=== PATIENT | female | born 1985 | race African-American/Black ===

== ENCOUNTER 2018-08-26 14:16 | Inpatient (IN) | payer OTHER ==
[2018-08-26 14:34] VITALS: BMI 45.4
[2018-08-26] MEDS ORDERED: ACETAMINOPHEN 325 MG TABLET (FP) PO ONE (14:34)
--- NOTE | 2018-08-26 14:34 | PDOC ---
Rapid Medical Evaluation Time Seen by Provider: 08/26/18 14:31 Medical Evaluation: Allergies Allergy/AdvReac Type Severity Reaction Status Date / Time strawberry Allergy Verified 08/26/18 14:31 tomato Allergy Verified 08/26/18 14:31 08/26/18 14:31 Pt presents to the ED for a miscarriage/vaginal bleeding. Pt states she started bleeding earlier this morning and notes that she passed large clots. She has them with her in the ED. LMP 07/29/18 Exam: NAD, ambulatory Orders: Labs, transvaginal US, urine Pt to proceed to the ED for further evaluation Discharge Disposition - Diagnosis Vaginal bleeding - Referrals - Patient Instructions - Post Discharge Activity
[2018-08-26 15:02] LABS: EOS % 8.1 % (0-4.5); HEMATOCRIT 23.2 % (32.4-45.2); HEMOGLOBIN 7.1 GM/dL (10.7-15.3); LYMPH % 30.3 % (8-40); MCHC 30.6 g/dl (32.0-36.0); MEAN CELL VOLUME 62.3 fl (80-96); MEAN PLT VOLUME 6.6 fl (7.5-11.1); MONO % 5.9 % (3.8-10.2); NEUT % 54.7 % (42.8-82.8); PLATELET COUNT 377 K/MM3 (134-434); RBC 3.73 M/mm3 (3.60-5.2); RDW 20.1 % (11.6-15.6); WHITE BLOOD COUNT 6.3 K/mm3 (4.0-10.0)
[2018-08-26 15:03] LABS: MCH 19.1 pg (25.7-33.7)
[2018-08-26] MEDS ORDERED: SODIUM CHLORIDE 0.9% 500 ML INFUS.BAG IV ONE ×2 (15:28→16:25)
[2018-08-26 16:00] LABS: ANISOCYTOSIS 2+; MACROCYTOSIS 0; PLATELET ESTIMATE NORMAL
--- NOTE | 2018-08-26 16:03 | PDOC ---
History of Present Illness - General Chief Complaint: Vaginal Bleeding Stated Complaint: BLEEDING,6WKS Time Seen by Provider: 08/26/18 14:31 History Source: Patient Exam Limitations: No Limitations - History of Present Illness Initial Comments: 33 yo F w a pmh of Asthma and chronic anemia presents to the ER with vaginal bleeding and lower abdominal pain. She requests to be evaluated to see if she is having a miscarriage. She has noticed that she is passing large clots out of her vagina, and she has brought them with her to the ED to be analyzed. She states that her bleeding and pain all began this morning. She admits that as the day has progressed she has started to feel weaker and more faint. Here in the ED she feels lightheaded. She states her LMP was 07/29/18. She denies fevers, chills, infections, headache, blurry vision, nausea, vomiting , back pain, chest pain, SOB, difficulty breathing, numbness, weakness, tingling , or vertigo. PCP: Olinda Zavala PSH: , D&C Social Hx: Denies smoking, drinking, or other substance usage. Allergies: [place] and tomatoes. Past History - Past Medical History Allergies/Adverse Reactions: Allergies Allergy/AdvReac Type Severity Reaction Status Date / Time strawberry Allergy Verified 08/26/18 14:31 tomato Allergy Verified 08/26/18 14:31 Anemia: Yes Asthma: Yes (INTUBATED X2) COPD: No - Suicide/Smoking/Psychosocial Hx Smoking History: Never smoked Review of Systems - Review of Systems Able to Perform ROS?: Yes Comments:: CONSTITUTIONAL: Present: fatigue Absent: fever, no chills EYES: Absent: visual changes ENT: Absent: ear pain, no sore throat CARDIOVASCULAR: Absent: chest pain, no palpitations RESPIRATORY: Absent: cough, no SOB GI: Present: Abdominal pain Absent: no nausea, no vomiting, no constipation, no diarrhea GENITOURINARY: Absent: dysuria, no frequency, no hematuria MUSKULOSKELETAL: Absent: back pain, no arthralgia, no myalgia SKIN: Absent: rash NEURO: Absent: headache *Physical Exam - Vital Signs Last Vital Signs Temp Pulse Resp BP Pulse Ox 98.1 F 86 19 99/52 L 99 08/26/18 14:31 08/26/18 14:31 08/26/18 14:31 08/26/18 14:31 08/26/18 14:31 - Physical Exam Comments: Hypotensive BP GENERAL: Well-appearing, well-nourished. No apparent distress. HEENT: Normocephalic, atraumatic. PERRL, EOM intact. CARDIOVASCULAR: Normal S1, S2. Regular rate and rhythm. PULMONARY: No evidence of respiratory distress. Lungs clear to auscultation bilaterally. No wheezing, rales or rhonchi. ABDOMEN: Mild suprapubic TTP. Soft, non-distended. EXTREMITIES: Normal ROM in all four extremities. No gross deformities. SKIN: Warm, dry. No rash NEUROLOGICAL: No focal neurological deficits. Female Pelvic Exam: positive: normal adnexa, normal size ovaries, discharge ( Large clots), vaginal bleeding, other (Active passage of large clots, Cervix is open. ). negative: normal external exam (Blood clots on outside. ), cervical os closed (Open), CMT, lesions, Bartholin mass, adnexal tenderness Moderate Sedation - Procedure Monitoring Vital Signs: Procedure Monitoring Vital Signs Temperature 98.1 F 08/26/18 14:31 Pulse Rate 86 08/26/18 14:31 Respiratory Rate 19 08/26/18 14:31 Blood Pressure 99/52 L 08/26/18 14:31 O2 Sat by Pulse Oximetry (%) 99 08/26/18 14:31 ED Treatment Course - LABORATORY CBC & Chemistry Diagram: 08/26/18 14:48 - ADDITIONAL ORDERS Additional order review: Laboratory Results 08/26/18 08/26/18 14:48 14:48 Beta HCG, Quant 97938.8 Blood Type A POSITIVE Antibody Screen Negative 08/26/18 14:48 RBC 3.73 MCV 62.3 L MCHC 30.6 L RDW 20.1 H MPV 6.6 L Neutrophils % 54.7 Lymphocytes % 30.3 Monocytes % 5.9 Eosinophils % 8.1 H Basophils % 1.0 - Medications Given in the ED: ED Medications Discontinued Medications Generic Name Dose Route Start Last Admin Trade Name Freq PRN Reason Stop Dose Admin Acetaminophen 650 mg 08/26/18 14:34 08/26/18 14:35 Tylenol - PO 08/26/18 14:35 650 mg ONCE ONE Administration Sodium Chloride 1,000 ml 08/26/18 15:28 08/26/18 15:45 Normal Saline - IV 08/26/18 15:29 1,000 ml ONCE ONE Administration Medical Decision Making - Medical Decision Making 33 yo F presents to the ER with vaginal bleeding and lightheadedness. - VS: Hypotensive - Pelvic: Active passage of clots, cervical os open. 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 US unremarkable and shows no evidence of ectopic . This patient likely experienced a near complete miscarriage. Dr. Pak consulted and knows about patient. She requests to have patient placed in room 5 and she will come evaluate her. Dr. Champion is here in the ED evaluating the patient. She states she will take the patient to the OR to perform a D&C. - Will admit patient to OB *DC/Admit/Observation/Transfer Diagnosis at time of Disposition: Vaginal bleeding, Retained products of conception - Discharge Dispostion Condition at time of disposition: Guarded Decision to Admit order: Yes - Referrals - Patient Instructions - Post Discharge Activity
--- NOTE | 2018-08-26 16:19 | PDOC ---
Attending Attestation - Resident Resident Name: Oscar Chu - ED Attending Attestation I have performed the following: I have examined & evaluated the patient, The case was reviewed & discussed with the resident, I agree w/resident's findings & plan, Exceptions are as noted - HPI HPI: 08/26/18 17:24 33y F A1 at approx 5 weeks gesatation presents with lower abdmoinal pain and vaginal bleeding since this morning. The pt was fine utnil this morning, woke up with abd cramping and vag bleeding psasing clots. denies any fever/ chills, cp. endorses feleing alittle lightheaded earlier today. Pt notes she had similar episode in March, baseline hbg was 8.5, and had repeat hbg was 7.1 and required a D&C. on exam pt appears uncomfortable mild suprapublic tenderness pelvic exam noted for many clots hbg at 7.1 here pelvic US noted for possible retained products no iup noted pt given transusion due to hypotension will dw special tester regarding need for d/c and further management - Medical Decision Making 08/26/18 18:[address] andrade - agree with taking pt to the OR for DC
[2018-08-26] MEDS ORDERED: ACETAMINOPHEN 1000 MG/100 ML VIAL (NON FORMULARY) IVPB ONE (17:06)
[2018-08-26] MEDS ORDERED: morphine CARPU-JECT 4 MG/1 ML DISP.SYRIN IVPUSH ONE (17:52)
[2018-08-26] MEDS ORDERED: MORPHINE SULFATE 2 MG/ML VIAL ONE (17:53)
--- NOTE | 2018-08-26 18:23 | HP ---
Past Medical History - Primary Care Physician PCP:: Cinthya Pak - Admission Chief Complaint: c/o 4 weeks gestation with heavy vaginal bleeeding & cramps since today AM at 11.00 AM . pt states she did not know she was . 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 she presented in ER Work up Hcg 15,652.8 miu, , sono Em 2.3 cm , heterogenous echogenic material seen , Retained products suspected History of Present Illness: pt had last sp ab on 06/05/18 D&C was done at [facility] pt states she had period after that twice regular . She is sexually active , not using contraception. 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 Weeks Gestation by Dates: 4 Heme/Onc: Yes: Anemia (not taking Iron pills) Infectious Disease: Yes: Other (declines STD) Endocrine: Yes: Other (denies any endo problems) - Past Surgical History Past Surgical History: Yes: (2010) Hx Myomectomy: No Hx Transabdominal Cerclage: No Additional Surgical History: D &C 05/2018 - Smoking History Smoking history: Never smoked - Alcohol/Substance Use Hx Alcohol Use: No History of Substance Use: reports: None - Social History History of Recent Travel: No Home Medications - Allergies Allergies/Adverse Reactions: Allergies Allergy/AdvReac Type Severity Reaction Status Date / Time strawberry Allergy Verified 08/26/18 14:31 tomato Allergy Verified 08/26/18 14:31 Physical Exam - Maternity Vital Signs: Vital Signs Temperature 97.5 F L 08/26/18 17:46 Pulse Rate 81 08/26/18 17:46 Respiratory Rate 19 08/26/18 14:31 Blood Pressure 121/72 08/26/18 17:46 O2 Sat by Pulse Oximetry (%) 98 08/26/18 17:46 Constitutional: Yes: Anxious, Obese, Pallor Eyes: Yes: WNL HENT: Yes: WNL, Normocephalic Neck: Yes: WNL Cardiovascular: Yes: WNL, Regular Rate and Rhythm Lungs: Clear to auscultation Breast(s): Yes: WNL. 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 No: Calf Tenderness Edema: No Integumentary: Yes: Incision (pfannensteil scar), Tattoos Deep Tendon Reflex Grade: Normal +2 ...Motor Strength: WNL Psychiatric: Yes: WNL - Labs Lab Results: CBC, BMP 08/26/18 14:48 Laboratory Tests 08/26/18 08/26/18 08/26/18 14:48 14:48 14:48 WBC 6.3 Hgb 7.1 L Hct 23.2 L Plt Count 377 Beta HCG, Quant 60005.8 Blood Type Antibody Screen Negative 08/26/18 16:17 WBC Hgb Hct Plt Count Beta HCG, Quant Blood Type A POSITIVE Antibody Screen Problem List - Problems (1) Incomplete with delayed or excessive hemorrhage Code(s): O03.1 - DELAYED OR EXCESSIVE HEMOR FOLLOWING INCMPL SPON (2) Anemia Code(s): D64.9 - ANEMIA, UNSPECIFIED Qualifiers: Anemia type: iron deficiency Iron deficiency anemia type: inadequate dietary iron intake Qualified Code(s): D50.8 - Other iron deficiency anemias Assessment/Plan 33 yrs , s/p primary c/s(2010) & sp ab ( 06/05/18) , is bleeding heavy incomplete ab is diagnozed Plan pt receiving pack cell transfusion in ER . suction D & C
[2018-08-26] MEDS ORDERED: MIDAZOLAM HCL 2 MG/2 ML SINGLE DOSE VIAL ONE ×3 (20:00→20:21)
[2018-08-26] MEDS ORDERED: LIDOCAINE HCL 1%, 10 MG/ML (20ML VIAL) ONE (20:02)
[2018-08-26] MEDS ORDERED: OXYTOCIN 10 UNITS/ML VIAL ONE ×2 (20:06)
[2018-08-26] MEDS ORDERED: ceFAZolin SODIUM 1 GM VIAL IVPB ONE (20:21)
[2018-08-26] MEDS ORDERED: IBUPROFEN 400 MG TABLET (FP) PO PRN (20:42)
[2018-08-26] MEDS ORDERED: oxyCODONE HCL 5 MG TABLET PO PRN (20:44)
[2018-08-26] MEDS ORDERED: ONDANSETRON 4 MG/2 ML VIAL IVPUSH PRN (20:44)
[2018-08-26] MEDS ORDERED: PROMETHAZINE HCL 25 MG/1 ML VIAL IVPUSH PRN (20:44)
--- NOTE | 2018-08-26 20:54 | OP ---
Operative Note - Note: Operative Date: 08/26/18 Pre-Operative Diagnosis: sp incomplete ab with hemorrhage & anemia Operation: suction evacuation curettage Findings: ut 10 week size ' os ope n blood clots at os removed #9 canula used for suction evacuation adnexa RHIT 2 gm iv Ancef given intraop IV pitocin infusion started Surgeon: Cinthya Pak Anesthesiologist/COVER MARKER: Mark Anthony Cash Anesthesia: Spinal Specimens Removed: uterine contents Estimated Blood Loss (mls): 30 Drains, Volume Out (mls): 100 (bladder catheterized & emptied prior to procedure ) Blood Volume Replaced (mls): 1 (one unit will be given post op ) Operative Report Dictated: Yes
--- NOTE | 2018-08-26 22:14 | OP ---
DATE OF OPERATION: 08/26/2018 OPERATION DONE: Suction evacuation and curettage. PREOPERATIVE DIAGNOSES: Spontaneous, incomplete with hemorrhage and anemia. POSTOPERATIVE DIAGNOSES: Spontaneous, incomplete with hemorrhage and anemia. SURGEON: Cinthya Pak MD ANESTHESIOLOGIST: Mark Anthony Cash MD ANESTHESIA: Spinal. FINDINGS: This is a 33-year-old 3 para 1-0-1-1, LMP July 29, and hCG is 15,650. Sonograms shows no gestational sac; irregular, heterogenous, echogenic contents in the uterine cavity; possible retained products of conception; and endometrium 2.3 cm. Patient was bleeding heavy with blood clots and blood transfusion was started in the emergency room by the ER physician. PROCEDURE: Patient was taken to the operating room table and spinal anesthesia was given. Patient was placed in the lithotomy position. Abdomen, pubis, perineum were painted with Betadine; draped in usual manner. Pelvic examination was done. Uterus was anteverted, 10-week size. Cervix was posterior, os was open, and the contents (blood clots) were felt at the cervical os. Then, bladder was catheterized emptied; 100 mL of the urine was removed. Then, the anterior lip of the cervix was held with a single-toothed tenaculum and the blood clots at the os were removed. Then, a No. 9 suction cannula was introduced into the uterine cavity and the contents were aspirated out until no more contents were obtained and then the cannula was removed. Curettage was done. Gritty sensation was felt all over the endometrial cavity. Then, the suction cannula was reintroduced and suction was done. No more tissue or blood clots were obtained. Suction was completed. Uterine cavity was clean and then tenaculum was removed. Hemostasis was verified. Estimated blood loss in the OR was 30 mL. Patient was bleeding profusely in the emergency room. Her hemoglobin was 7 g and patient is obese with a BMI of 45.5. She has history of bronchial asthma also. Patient tolerated the procedure well. She was given 2 g of IV Ancef prior to the procedure and Pitocin during the procedure and she was given a 2nd unit of the blood transfusion in the recovery room. Hilda HOOVER/[id number]
[2018-08-26 23:14] VITALS: BP 122/69; PULSE 83; TEMP 98.3
--- NOTE | 2018-08-28 12:35 | PATH ---
Surgical Pathology Report Patient Name: FILIPE RINCON Med. Rec. 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 PHYSICIAN EMERGENCY DEPT Specimen(s) Received A: CLOTS B: CONTENTS OF UTERUS Clinical History Incomplete , passing clots Final Diagnosis A. CLOTS, PASSAGE: BLOOD/FIBRIN CLOTS. B. CONTENTS OF UTERUS, SUCTION DILATION AND CURETTAGE: IMMATURE CHORIONIC VILLI, DECIDUA, AND GESTATIONAL ENDOMETRIUM CONSISTENT WITH PRODUCTS OF CONCEPTION. Electronically Signed Taty Noriega M.D. Gross Description A. Received fresh labeled with the patient's name and indicated on the requisition to be clots, is a 9.5 x 8.8 x 1.2 cm aggregate of red-brown blood clot. No definite villous tissue or somatic tissue is identified. [employer] sections are submitted in 3 cassettes. B. Received in formalin labeled "contents of uterus," is an 11.5 x 9.0 x 1.0 cm aggregate of gonzales-brown soft tissue fragments admixed with blood clot. No definite villous tissue or somatic tissue is identified. [employer] sections are submitted in 3 cassettes. /08/27/201808/27/2018
== END 2018-08-27 00:55 | disposition home or self-care (01) | DRG 544 ==
LOC: JER 14:16 → JERBED 18:13 → J3W 22:45
PROVIDERS: ADMIT Obstetrics & Gynecology; ATTEND Obstetrics & Gynecology
PROC: 30233N1 Transfusion of Nonautologous Red Blood Cells into Peripheral Vein, Percutaneous Approach (ICD-10-PCS; 2018-08-26)
PROC: 10D17ZZ Extraction of Products of Conception, Retained, Via Natural or Artificial Opening (ICD-10-PCS; principal; 2018-08-26 19:20)
DX: O03.1 Delayed or excessive hemorrhage following incomplete spontaneous abortion (principal); Z68.42 Body mass index [BMI] 45.0-49.9, adult; I95.9 Hypotension, unspecified; E66.9 Obesity, unspecified; J45.909 Unspecified asthma, uncomplicated; D64.9 Anemia, unspecified; Z3A.10 10 weeks gestation of pregnancy
CPT/HCPCS: 36415; 36430; 76817-TC; 84702; 85025; 86850; 86900; 86901; 86922; 88305-TC; 94760; 99285-25; P9038; P9058